=== PATIENT | female | born 1940 | race Caucasian/White ===

== ENCOUNTER 2024-11-27 13:29 | Emergency (ER) | payer MEDICARE, MEDICAID ==
[~2024-11-27] VITALS: Ht 129.5 cm; Wt 66.0 kg
[2024-11-27 13:50] VITALS: BP 163/61; PULSE 69; RESP 18; TEMP 98.1; O2SAT 98
[2024-11-27] MEDS: PERTUSS(ACELL),DIPH,TET/PF 0.5 ML SYRINGE [ADULT] IM. ONE (15:08)
[2024-11-27] MEDS: BACITRACIN 0.9 GM PACKET OINTMENT TP ONE (15:08)
== END 2024-11-27 15:52 | disposition home or self-care (01) ==
LOC: EMS 13:29
DX: S00.511A Abrasion of lip, initial encounter (principal); S00.81XA Abrasion of other part of head, initial encounter; I10 Essential (primary) hypertension; Z53.29 Procedure and treatment not carried out because of patient's decision for other reasons; W10.9XXA Fall (on) (from) unspecified stairs and steps, initial encounter; Y93.89 Activity, other specified; Y92.89 Other specified places as the place of occurrence of the external cause; Y99.8 Other external cause status
CPT/HCPCS: 70450; 72125; 90471; 90715; 99285